=== PATIENT | male | born 1990 | race Caucasian/White ===

== ENCOUNTER 2018-09-06 10:24 | Day surgery (SDC) | payer OTHER ==
[2018-09-03 15:33] VITALS: BMI 32.1
[2018-09-06 11:09] VITALS: TEMP 98.5
[2018-09-06] MEDS ORDERED: LIDOCAINE HCL/PF 2% SDV 5ML VIAL ONE (11:13)
[2018-09-06] MEDS ORDERED: PROPOFOL 20 ML ONE ×2 (11:14)
[2018-09-06 12:29] VITALS: BP 130/88; PULSE 84
--- NOTE | 2018-09-08 16:46 | PATH ---
Surgical Pathology Report Patient Name: MEHREEN HAN [facility]. Rec. #: [id number] /Age/Gender: 1990 (Age: 28) / M Account: [id number] Location: [facility] Taken: 09/06/2018 Received: 09/06/2018 Reported: 09/08/2018 Physicians: Hipolito Thompson M.D. Specimen(s) Received A: BX DUODENUM B: BX ANTRUM Clinical History GERD Postoperative diagnosis: Distal esophagitis, gastritis Final Diagnosis A. DUODENUM, BIOPSY: DUODENUM MUCOSA WITH NO DIAGNOSTIC ABNORMALITIES. NO HISTOLOGIC EVIDENCE OF CELIAC DISEASE. B. ANTRUM, BIOPSY: GASTRIC MUCOSA WITH MILD CHRONIC GASTRITIS. IMMUNOSTAIN FOR H. PYLORI IS NEGATIVE. NEGATIVE FOR INTESTINAL METAPLASIA. Electronically Signed Charles Vivas M.D. Gross Description A. Received in formalin, labeled "duodenum biopsy" are 2 melton, irregular portions of soft tissue measuring 0.4 and 0.6 cm. in greatest dimension. The specimens are submitted in toto in one cassette. B. Received in formalin, labeled "antrum biopsy" are 3 melton, irregular portions of soft tissue ranging from 0.3-0.5 cm. in greatest dimension. The specimens are submitted in toto in one cassette. 09/07/201809/07/2018
== END 2018-09-06 12:25 | disposition home or self-care (01) ==
LOC: FASU-ENDO 10:24
PROVIDERS: ATTEND Internal Medicine Gastroenterology
PROC: 0DB68ZX Excision of Stomach, Via Natural or Artificial Opening Endoscopic, Diagnostic (ICD-10-PCS; 2018-09-06)
PROC: 0DB48ZX Excision of Esophagogastric Junction, Via Natural or Artificial Opening Endoscopic, Diagnostic (ICD-10-PCS; 2018-09-06)
PROC: 0DB98ZX Excision of Duodenum, Via Natural or Artificial Opening Endoscopic, Diagnostic (ICD-10-PCS; principal; 2018-09-06 11:00)
DX: K29.50 Unspecified chronic gastritis without bleeding (principal); K20.9 Esophagitis, unspecified; R12 Heartburn
CPT/HCPCS: 88305-TC; 88342-TC